=== PATIENT | female | born 1980 | race Caucasian/White ===

== ENCOUNTER 2016-07-30 12:04 | Outpatient (CLI) ==
--- NOTE | 2016-07-30 13:40 | US ---
EXAM: Ultrasound Transvaginal Non-obstetrical. HISTORY: Left lower quadrant pain. Previous hysterectomy. COMPARISON: None available. TECHNIQUE: Herman scale and color doppler images with transvaginal probe. FINDINGS: The uterus is not visualized, consistent with stated history. The right ovary measures 3 .1 x 1.7 x 1.5 cm and appears normal with vascular flow. The left ovary measures 6.7 x 3.7 x 4.4 cm . Within the left ovary is a 3.7 x 3.1 x 3.7 cm circumscribed anechoic mass with lace-like internal echoes. Additional follicles are present in the left ovary. Vascular flow is present in the left ovary. No pelvic fluid collections are seen. IMPRESSION: 1. Hemorrhagic left ovarian cyst. Follow-up ultrasound in 3 months recommended for reassessment. 2. Normal right ovary.
== END 2016-07-30 12:05 | disposition home or self-care (01) ==
LOC: RAD 12:04
PROVIDERS: ATTEND Physician Assistant Medical
DX: R10.32 Left lower quadrant pain (principal)